=== PATIENT | female | born 1985 | race Caucasian/White ===

== ENCOUNTER → 2016-08-08 | Outpatient (CLI) | payer MEDICAID ==
[2016-08-08 09:31] LABS: BASO % 0.3 % (0.0-1.0); EOS # 0.3 K/mm3 (0.0-0.50); EOS % 3.6 % (0.0-3.0); LARGE UNSTAINED CELL # 0.1 K/mm3 (0.0-0.4); LARGE UNSTAINED CELL % 1.2 % (0.0-4.0); LYMPH # 1.2 K/mm3 (1.5-4.5); LYMPH % 16.7 % (24.0-44.0); MEAN CORPUSCULAR HEMOGLOBIN 28.5 pg (27.0-33.0); MEAN CORPUSCULAR HGB CONC 32.6 g/dl (32.0-36.5); MEAN CORPUSCULAR VOLUME 87.5 fl (80.0-96.0); MONO # 0.4 K/mm3 (0.0-0.8); MONO % 5.3 % (0.0-5.0); NEUTROPHILS # 5.3 K/mm3 (1.8-7.7); PLATELET COUNT, AUTOMATED 308 k/mm3 (150-450); RED CELL DISTRIBUTION WIDTH 12.3 % (11.5-14.5); WHITE BLOOD COUNT 7.2 K/mm3 (4.0-10.0)
[2016-08-08 09:59] LABS: FREE T4 0.97 NG/DL (0.76-1.46)
[2016-08-08 10:23] LABS: PROLACTIN 17.4 NG/ML
--- NOTE | 2016-08-08 10:40 | REP ---
PELVIC ULTRASOUND: Real-time sonographic evaluation of the pelvis is performed utilizing transabdominal technique. The urinary bladder measures 12.0 x 4.9 x 8.4 cm. The uterus measures 8.7 x 3.7 x 5.5 cm. Endometrial stripe measures 14 mm with no endometrial fluid collection. Right ovary measures 4.9 x 2.9 x 2.8 cm. Two dominant follicles are seen, the larger measuring 2.1 cm. The left ovary measures 2.6 x 1.7 x 2.0 cm. There is no other evidence of adnexal mass. No free fluid is seen. There is no evidence of ovarian torsion with blood flow seen in each ovary with duplex Doppler evaluation. The patient cannot tolerate endovaginal ultrasound. IMPRESSION: Essentially negative pelvic ultrasound. Signed by Reynaldo Sheppard MD 08/08/2016 04:57 P
== END ==
LOC: M LAB 08:33
PROVIDERS: ATTEND Nurse Practitioner Women's Health
DX: N92.0 Excessive and frequent menstruation with regular cycle (principal)

== ENCOUNTER 2017-01-31 19:31 | Emergency (ER) | payer MEDICAID ==
[~2017-01-31] VITALS: Ht 160 cm; Wt 95.1 kg
[2017-01-31] MEDS ORDERED: VITA200015 PO (19:39)
[2017-01-31] MEDS ORDERED: NS 1,000 ML IV ONE (21:30)
[2017-01-31] MEDS ORDERED: MORPHINE 2 MG/ML 1ML SYRINGE IV ONE (21:30)
[2017-01-31] MEDS ORDERED: ONDANSETRON 4MG/2ML VIAL (J2405) IV ONE (21:30)
--- NOTE | 2017-01-31 21:42 | REP ---
Clinical: Headache with history of intracranial tumor and surgery. Comparison: None. 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 The ventricles, sulci, and cisterns are otherwise relatively symmetric and grossly normal. Sheppard-white differentiation is is relatively intact. No evidence for acute intracranial hemorrhage or mass effect. No extra-axial hemorrhage or significant fluid collection. Partial opacification and fluid/mucosal thickening involving the sphenoid sinuses noted. Mastoid air cells are clear. Impression: 1. Postoperative changes involving the right cerebral hemisphere as described above. No obvious evidence for acute intracranial process including hemorrhage or mass effect. 2. Partial opacification of the sphenoid sinuses should be correlated clinically and may be related to patient's symptoms (headaches). Signed by Javier Parr MD 01/31/2017 09:34 P
[2017-01-31 21:43] LABS: BASO % 0.3 % (0.0-1.0); EOS # 0.1 K/mm3 (0.0-0.50); EOS % 1.7 % (0.0-3.0); LARGE UNSTAINED CELL # 0.1 K/mm3 (0.0-0.4); LARGE UNSTAINED CELL % 1.2 % (0.0-4.0); LYMPH # 0.6 K/mm3 (1.5-4.5); LYMPH % 11.5 % (24.0-44.0); MEAN CORPUSCULAR HEMOGLOBIN 29.7 pg (27.0-33.0); MEAN CORPUSCULAR HGB CONC 34.5 g/dl (32.0-36.5); MEAN CORPUSCULAR VOLUME 86.2 fl (80.0-96.0); MONO # 0.2 K/mm3 (0.0-0.8); MONO % 4.7 % (0.0-5.0); NEUTROPHILS # 3.7 K/mm3 (1.8-7.7); NEUTROPHILS % 80.6 % (36.0-66.0); PLATELET COUNT, AUTOMATED 188 k/mm3 (150-450); RED CELL DISTRIBUTION WIDTH 12.2 % (11.5-14.5); WHITE BLOOD COUNT 4.6 K/mm3 (4.0-10.0)
[2017-01-31 22:15] LABS: ALBUMIN 3.7 GM/DL (3.2-5.2); ALBUMIN/GLOBULIN RATIO 0.88 (1.00-1.93); ALKALINE PHOSPHATASE 85 U/L (45-117); ALT/SGPT 48 U/L (12-78); ANION GAP 7 MEQ/L (8-16); AST/SGOT 35 U/L (15-37); BILIRUBIN,DIRECT 0.1 MG/DL (0.0-0.2); BILIRUBIN,TOTAL 0.5 MG/DL (0.2-1.0); BLOOD UREA NITROGEN 9 MG/DL (7-18); CALCIUM LEVEL 8.7 MG/DL (8.5-10.1); CARBON DIOXIDE LEVEL 29 MEQ/L (21-32); CHLORIDE LEVEL 100 MEQ/L (98-107); CREATININE FOR GFR 0.88 MG/DL (0.55-1.02); GLOMERULAR FILTRATION RATE > 60.0 (>60); GLUCOSE, FASTING 117 MG/DL (70-105); MAGNESIUM LEVEL 2.2 MG/DL (1.8-2.4); POTASSIUM SERUM 3.9 MEQ/L (3.5-5.1); SODIUM LEVEL 136 MEQ/L (136-145); TOTAL PROTEIN 7.9 GM/DL (6.4-8.2)
[2017-01-31] MEDS ORDERED: LEVO750T13 PO (22:48)
[2017-01-31] MEDS ORDERED: PRED20TA PO (22:49)
[2017-01-31 23:05] VITALS: BP 101/61
[2017-02-11] MEDS ORDERED: CLAR10CA3 PO (18:09)
== END 2017-01-31 23:08 | disposition home or self-care (01) ==
LOC: M ED 19:31
DX: R51 Headache (principal); J01.30 Acute sphenoidal sinusitis, unspecified
CPT/HCPCS: 70450; 80048; 80076; 83735; 84443; 85025; 87880; 96361; 96374; 96375; 99284; J2405

== ENCOUNTER 2017-02-26 11:39 | Day surgery (SDC) | payer MEDICAID ==
[~2017-02-26] VITALS: Ht 162.6 cm; Wt 95.3 kg
[~2017-02-26 11:39] MED LIST: CLAR10CA3 PO; LEVO750T13 PO; PRED20TA PO; VITA200015 PO
[2017-02-26] MEDS ORDERED: LR 1,000 ML IV SCH ×4 (12:15→14:30)
[2017-02-26 12:37] LABS: CONTROL LINE UCG INT CTR LINE PRESENT
[2017-02-26] MEDS ORDERED: LIDOCAINE 2% INJ 100 MG/5 ML SDV (FOR ANES.) As Ordered ONE (13:35)
[2017-02-26] MEDS ORDERED: KETOROLAC 60 MG/2 ML VIAL (J1885) As Ordered ONE (13:35)
[2017-02-26] MEDS ORDERED: PROPOFOL 200 MG/20 ML VIAL As Ordered ONE (13:35)
[2017-02-26] MEDS ORDERED: fentaNYL 100 MCG/2 ML INJECTION (J3010) As Ordered ONE (13:35)
[2017-02-26] MEDS ORDERED: ONDANSETRON 4MG/2ML VIAL (J2405) As Ordered ONE (13:35)
[2017-02-26] MEDS ORDERED: MIDAZOLAM INJ 2 MG/2 ML VIAL (J2250) As Ordered ONE (13:35)
[2017-02-26] MEDS ORDERED: dexameTHASONE 4 MG/ML 1ML VIAL (J1100) As Ordered ONE (13:35)
[2017-02-26] MEDS ORDERED: fentaNYL 100 MCG/2 ML INJECTION (J3010) IV PRN (14:30)
[2017-02-26] MEDS ORDERED: ONDANSETRON 4MG/2ML VIAL (J2405) IV PRN (14:30)
[2017-02-26] MEDS ORDERED: IBUPROFEN 600 MG TAB PO SCH (16:00)
[2017-02-26 16:30] VITALS: BP 135/84
--- NOTE | 2017-02-26 19:16 | RO ---
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 PROCEDURE: Hymenectomy and biopsy left labia. SURGEON: Dr. Sanchez ANESTHESIA: Laryngeal mask anesthesia (LMA). BRIEF DESCRIPTION OF PROCEDURE AND FINDINGS: Marlene was brought to the operating room where sufficient LMA anesthesia was induced and she was prepped, draped and positioned in the usual sterile fashion of course with the microperforate hymen she could not have a vaginal prep at this point in the case. She was then positioned appropriately and after a time etc, the labia were evaluated where the patient had shown me the pyretic area. We did a small full thickness biopsy of the labia and a single stitch was used there to provide hemostasis and proximation of the skin, that was 3-0 Vicryl that we used. We then turned our attention to the hymen. There were pinprick size openings, neither one of them wide enough initially for me to get the end of scissors in. So we went ahead and just dilated it with a little hemostat and then used the Metzenbaum scissors to create some stellate incisions within the hymenal tissue and we resected a little bit of it because it was fairly thick and prominent and then at the base of the stellate incisions we used 3-0 Vicryl to suture the skin and interrupt its stitches for hemostasis and approximation. We then did a vaginal prep and an exam under anesthesia and we found only one cervix and only one uterus and we then packed the vagina with 2-inch packing to put pressure on the area of the dissection of the hymenectomy and the bladder was emptied and the procedure was then ended. ESTIMATED BLOOD LOSS FOR THE PROCEDURE: Maybe 5 mL. FLUID REPLACEMENT: Crystalloid. COMPLICATIONS: None. CONDITION AND DISPOSITION: Marlene tolerated the procedure well and ws recovering in the recovering room in good condition.
== END 2017-02-26 16:43 | disposition home or self-care (01) ==
LOC: M SDC 11:39
PROVIDERS: ATTEND Obstetrics & Gynecology
DX: Q52.3 Imperforate hymen (principal); N90.89 Other specified noninflammatory disorders of vulva and perineum; G40.909 Epilepsy, unspecified, not intractable, without status epilepticus; L40.9 Psoriasis, unspecified; R51 Headache; Z88.2 Allergy status to sulfonamides; Z88.1 Allergy status to other antibiotic agents; Z88.8 Allergy status to other drugs, medicaments and biological substances; Z91.030 Bee allergy status; Z92.3 Personal history of irradiation
CPT/HCPCS: 56700; 84703; 88304; J1100; J1885; J2250; J2405; J3010

== ENCOUNTER → 2017-04-28 | Outpatient (REF) | payer MEDICAID ==
[2017-04-28 13:16] LABS: ANION GAP 7 MEQ/L (8-16); BLOOD UREA NITROGEN 8 MG/DL (7-18); CALCIUM LEVEL 8.8 MG/DL (8.5-10.1); CARBON DIOXIDE LEVEL 28 MEQ/L (21-32); CHLORIDE LEVEL 105 MEQ/L (98-107); CREATININE FOR GFR 0.59 MG/DL (0.55-1.02); GLOMERULAR FILTRATION RATE > 60.0 (>60); GLUCOSE, FASTING 106 MG/DL (70-105); POTASSIUM SERUM 4.2 MEQ/L (3.5-5.1); SODIUM LEVEL 140 MEQ/L (136-145)
== END ==
LOC: M SFHCADAM 09:01
PROVIDERS: ATTEND Physician Assistant Medical
DX: R73.09 Other abnormal glucose (principal); E55.9 Vitamin D deficiency, unspecified

== ENCOUNTER → 2017-05-28 | Outpatient (REF) | payer MEDICAID | LOC: M SFHCADAM 12:13 | DX: J02.9 Acute pharyngitis, unspecified (principal) ==

== ENCOUNTER → 2017-10-01 | Outpatient (REF) | payer MEDICAID ==
[2017-10-01 14:15] LABS: ESTIMATED AVERAGE GLUCOSE 117 MG/DL (60-110); HEMOGLOBIN A1c 5.7 %
== END ==
LOC: M SFHCADAM 08:12
DX: R73.09 Other abnormal glucose (principal)

== ENCOUNTER → 2018-07-28 | Outpatient (REF) | payer MEDICAID ==
[2018-07-28 13:16] LABS: BLOOD UREA NITROGEN 9 MG/DL (7-18); CALCIUM LEVEL 8.7 MG/DL (8.5-10.1); CARBON DIOXIDE LEVEL 31 MEQ/L (21-32); CHLORIDE LEVEL 106 MEQ/L (98-107); CREATININE FOR GFR 0.82 MG/DL (0.55-1.30); GLOMERULAR FILTRATION RATE > 60.0 (>60); GLUCOSE, FASTING 102 MG/DL (70-100); POTASSIUM SERUM 4.3 MEQ/L (3.5-5.1); SODIUM LEVEL 141 MEQ/L (136-145)
[2018-07-28 13:29] LABS: TOTAL 25(OH) VITAMIN D 17.1 NG/ML (30.0-100.0)
[2018-07-28 14:14] LABS: HEMOGLOBIN A1c 5.8 %
== END ==
LOC: M SFHCADAM 08:26
PROVIDERS: ATTEND Physician Assistant
DX: Z68.39 Body mass index [BMI] 39.0-39.9, adult (principal); R73.09 Other abnormal glucose; E55.9 Vitamin D deficiency, unspecified

== ENCOUNTER → 2020-02-07 | Outpatient (REF) | payer MEDICAID ==
[2020-02-07 14:57] LABS: ALBUMIN 3.4 GM/DL (3.2-5.2); ALT/SGPT 27 U/L (12-78); BILIRUBIN,TOTAL 0.3 MG/DL (0.2-1.0); BLOOD UREA NITROGEN 7 MG/DL (7-18); CARBON DIOXIDE LEVEL 29 MEQ/L (21-32); CHLORIDE LEVEL 104 MEQ/L (98-107); CHOLESTEROL LEVEL 214 MG/DL (<200); CREATININE FOR GFR 0.77 MG/DL (0.55-1.30); GLOMERULAR FILTRATION RATE > 60.0 (>60); GLUCOSE, FASTING 102 MG/DL (70-100); HDL CHOLESTEROL 40 MG/DL (>40); LDL CHOLESTEROL 120 MG/DL (<100); NON-HDL-C 174 MG/DL; POTASSIUM SERUM 4.2 MEQ/L (3.5-5.1); SODIUM LEVEL 137 MEQ/L (136-145); TOTAL PROTEIN 7.7 GM/DL (6.4-8.2); TRIGLYCERIDES LEVEL 269 MG/DL (<150)
[2020-02-07 15:03] LABS: TOTAL 25(OH) VITAMIN D 15.5 NG/ML (30.0-100.0)
== END ==
LOC: M SFHCADAM 14:11
PROVIDERS: ATTEND Physician Assistant
DX: R73.01 Impaired fasting glucose (principal); E55.9 Vitamin D deficiency, unspecified; Z68.39 Body mass index [BMI] 39.0-39.9, adult

== ENCOUNTER → 2022-12-15 | Outpatient (REF) | payer MEDICAID ==
[~2022-12-15] MED LIST changes: +LEVO1TAB40 PO; -LEVO750T13 PO
[2022-12-15 12:46] LABS: HEMATOCRIT 40.5 % (36.0-47.0); MEAN CORPUSCULAR HEMOGLOBIN 28.9 pg (27.0-33.0); MEAN CORPUSCULAR HGB CONC 32.1 g/dl (32.0-36.5); PLATELET COUNT, AUTOMATED 319 10^3/uL (150-450); WHITE BLOOD COUNT 6.3 10^3/uL (4.0-10.0)
[2022-12-15 13:15] LABS: ALBUMIN 3.4 G/DL (3.2-5.2); ALKALINE PHOSPHATASE 72 U/L (46-116); ALT/SGPT 17 U/L (7.0-40); AST/SGOT 8 U/L (<34); BILIRUBIN,TOTAL 0.6 MG/DL (0.3-1.2); BLOOD UREA NITROGEN 11 MG/DL (9-23); CALCIUM LEVEL 9.6 MG/DL (8.5-10.1); CARBON DIOXIDE LEVEL 28 MMOL/L (20-31); CHLORIDE LEVEL 105 MMOL/L (98-107); CHOLESTEROL LEVEL 188 MG/DL (<200); CHOLESTEROL RISK RATIO 5.15 (<5); CREATININE FOR GFR 0.82 MG/DL (0.55-1.30); GLOMERULAR FILTRATION RATE > 60.0 (>60); GLUCOSE, FASTING 97 MG/DL (60-100); HDL CHOLESTEROL 36.5 MG/DL (>40); LDL CHOLESTEROL 111.5 MG/DL (<100); NON-HDL-C 151.5 MG/DL; SODIUM LEVEL 139 MMOL/L (136-145); TOTAL PROTEIN 6.8 G/DL (5.7-8.2); TRIGLYCERIDES LEVEL 200 MG/DL (<150)
[2022-12-15 13:34] LABS: HEMOGLOBIN A1c 5.7 % (4.0-6.0)
== END ==
LOC: M SFHCADAM 07:18
PROVIDERS: ATTEND Physician Assistant
DX: R73.09 Other abnormal glucose (principal); E55.9 Vitamin D deficiency, unspecified; Z68.39 Body mass index [BMI] 39.0-39.9, adult; E78.00 Pure hypercholesterolemia, unspecified

== ENCOUNTER → 2023-01-20 | Outpatient (REF) | payer MEDICAID | LOC: M SFHCADAM 15:52 | PROVIDERS: ATTEND Physician Assistant Medical | DX: Z53.9 Procedure and treatment not carried out, unspecified reason (principal) ==

== ENCOUNTER → 2023-01-22 | Outpatient (REF) | payer MEDICAID | LOC: M SFHCADAM 07:58 | PROVIDERS: ATTEND Physician Assistant Medical | DX: M79.644 Pain in right finger(s) (principal) ==

== ENCOUNTER → 2023-01-22 | Outpatient (CLI) | payer MEDICAID | LOC: M ADAMS 08:38 | PROVIDERS: ATTEND Physician Assistant Medical | DX: M79.644 Pain in right finger(s) (principal) ==

== ENCOUNTER → 2023-04-15 | Outpatient (CLI) | payer MEDICAID | LOC: M WHC 13:08 | PROVIDERS: ATTEND Nurse Practitioner Family | DX: N91.2 Amenorrhea, unspecified (principal); N83.291 Other ovarian cyst, right side ==

== ENCOUNTER → 2023-04-15 | Outpatient (CLI) | payer MEDICAID ==
[2023-04-15 17:01] LABS: HEMOGLOBIN A1c 5.7 % (4.0-6.0)
[2023-04-15 17:13] LABS: PROLACTIN 4.91 NG/ML; THYROID STIMULATING HORMONE 1.337 uIU/ML (0.55-4.78)
[2023-04-15 17:17] LABS: FREE T4 0.85 NG/DL (0.89-1.76)
[2023-04-15 17:19] LABS: ALBUMIN 3.5 G/DL (3.2-5.2); ALKALINE PHOSPHATASE 81 U/L (46-116); ALT/SGPT 22 U/L (7.0-40); AST/SGOT 16 U/L (<34); BILIRUBIN,TOTAL 0.2 MG/DL (0.3-1.2); BLOOD UREA NITROGEN 12 MG/DL (9-23); CALCIUM LEVEL 8.9 MG/DL (8.5-10.1); CARBON DIOXIDE LEVEL 28 MMOL/L (20-31); CHLORIDE LEVEL 104 MMOL/L (98-107); CREATININE FOR GFR 0.76 MG/DL (0.55-1.30); GLOMERULAR FILTRATION RATE > 60.0 (>60); GLUCOSE, FASTING 108 MG/DL (60-100); POTASSIUM SERUM 4.4 MMOL/L (3.5-5.1); SODIUM LEVEL 140 MMOL/L (136-145); TOTAL PROTEIN 7.1 G/DL (5.7-8.2)
[2023-04-15 17:20] LABS: HCG, SERUM QUALITATIVE NEGATIVE (NEGATIVE)
[2023-04-19 17:07] LABS: 17 HYDROXY PROGESTERONE < 10 ng/dL (.)
== END ==
LOC: M PLALAB 13:48
PROVIDERS: ATTEND Nurse Practitioner Family
DX: N91.2 Amenorrhea, unspecified (principal)

== ENCOUNTER 2023-08-19 09:04 | Day surgery (SDC) | payer MEDICAID ==
[~2023-08-19] VITALS: Ht 160 cm; Wt 100.5 kg
[~2023-08-19 09:04] MED LIST changes: +CALCCAP4 PO; +LR 1,000 ML IV SCH; +VITA100093 PO
[2023-08-19] MEDS ORDERED: LR 1,000 ML IV SCH ×2 (09:35→11:40)
[2023-08-19 09:36] LABS: HEMATOCRIT 42.7 % (36.0-47.0); HEMOGLOBIN 13.9 g/dl (12.0-15.5); MEAN CORPUSCULAR HEMOGLOBIN 28.7 pg (27.0-33.0); MEAN CORPUSCULAR HGB CONC 32.6 g/dl (32.0-36.5); MEAN CORPUSCULAR VOLUME 88.2 fl (80.0-96.0); PLATELET COUNT, AUTOMATED 322 10^3/uL (150-450); RED BLOOD COUNT 4.84 10^6/uL (4.00-5.40); WHITE BLOOD COUNT 6.8 10^3/uL (4.0-10.0)
[2023-08-19] MEDS ORDERED: CLOB0.0515 (09:36)
[2023-08-19] MEDS ORDERED: [UNRECOGNIZED DRUG - CODE] (09:36)
[2023-08-19] MEDS ORDERED: KETO2SHA8 TOP (09:36)
[2023-08-19] MEDS ORDERED: TACR0.1O (09:36)
[2023-08-19] MEDS ORDERED: LEVOTAB10 PO (09:36)
[2023-08-19] MEDS: SILVER NITRATE APPLICATOR (1 = QTY 10) As Ordered ONE (10:38)
[2023-08-19] MEDS ORDERED: dexmedeTOMIDine (4MCG/ML)200MCG/50ML BTL (PRECEDEX) As Ordered ONE (10:59)
[2023-08-19] MEDS ORDERED: LIDOCAINE 2% 100MG/5ML SDV (FOR ANES.) As Ordered ONE (10:59)
[2023-08-19] MEDS ORDERED: ONDANSETRON 4MG 2ML VIAL As Ordered ONE (10:59)
[2023-08-19] MEDS ORDERED: fentaNYL 100 MCG/2 ML INJECTION As Ordered ONE (10:59)
[2023-08-19] MEDS ORDERED: KETOROLAC 60MG 2ML VIAL As Ordered ONE (10:59)
[2023-08-19] MEDS ORDERED: propofoL 200 MG/20 ML VIAL As Ordered ONE (10:59)
[2023-08-19] MEDS ORDERED: MIDAZOLAM INJ 2MG/2ML VIAL As Ordered ONE (10:59)
[2023-08-19] MEDS ORDERED: ACETAMINOPHEN 1000MG 100ML IV BAG As Ordered ONE (11:05)
[2023-08-19] MEDS: LIDOCAINE W/EPINEPHRINE 1% 20ML VIAL As Ordered ONE (11:30)
[2023-08-19] MEDS ORDERED: HYDROMORPHONE HCL 0.5 MG/ 0.5 ML SYRINGE IV PRN (11:40)
[2023-08-19] MEDS ORDERED: oxyCODONE 5MG TAB PO PRN ×2 (11:40→12:15)
[2023-08-19] MEDS ORDERED: fentaNYL 100 MCG/2 ML INJECTION IV PRN (11:40)
[2023-08-19] MEDS ORDERED: ONDANSETRON 4MG 2ML VIAL IV PRN (12:15)
[2023-08-19] MEDS ORDERED: ACETAMINOPHEN 500 MG TAB PO PRN (12:15)
[2023-08-19] MEDS: ONDANSETRON 4MG 2ML VIAL IV PRN (12:18)
[2023-08-19 12:40] VITALS: BP 121/71; TEMP 96.7; O2SAT 95
== END 2023-08-19 13:07 | disposition home or self-care (01) ==
LOC: M SDC 09:04
PROVIDERS: ATTEND Obstetrics & Gynecology
DX: N84.0 Polyp of corpus uteri (principal); N93.9 Abnormal uterine and vaginal bleeding, unspecified; N85.02 Endometrial intraepithelial neoplasia [EIN]; H54.7 Unspecified visual loss; R73.03 Prediabetes; Z79.899 Other long term (current) drug therapy; Z85.841 Personal history of malignant neoplasm of brain; Z92.3 Personal history of irradiation; Z88.2 Allergy status to sulfonamides; Z88.8 Allergy status to other drugs, medicaments and biological substances; Z91.030 Bee allergy status
CPT/HCPCS: 58558; 81025; 85027; 86850; 86900; 86901; 88305; J0131; J1100; J1885; J2250; J2405; J3010

== ENCOUNTER → 2023-11-05 | Outpatient (REF) | payer MEDICAID ==
[~2023-11-05] MED LIST changes: +CLOB0.0515; +KETO2SHA8 TOP; +LEVOTAB10 PO; -LR 1,000 ML IV SCH; +TACR0.1O; +[UNRECOGNIZED DRUG - CODE]
[2023-11-05 15:09] LABS: HEMOGLOBIN 14.2 g/dl (12.0-15.5); MEAN CORPUSCULAR HEMOGLOBIN 28.8 pg (27.0-33.0); MEAN CORPUSCULAR HGB CONC 32.3 g/dl (32.0-36.5); MEAN CORPUSCULAR VOLUME 89.2 fl (80.0-96.0); PLATELET COUNT, AUTOMATED 325 10^3/uL (150-450); RED BLOOD COUNT 4.93 10^6/uL (4.00-5.40); WHITE BLOOD COUNT 8.2 10^3/uL (4.0-10.0)
[2023-11-05 15:25] LABS: HEMOGLOBIN A1c 5.8 % (4.0-6.0)
[2023-11-05 15:38] LABS: ALBUMIN 3.6 G/DL (3.2-5.2); ALKALINE PHOSPHATASE 82 U/L (46-116); ALT/SGPT 21 U/L (7.0-40); AST/SGOT 9 U/L (<34); BILIRUBIN,TOTAL 0.5 MG/DL (0.3-1.2); BLOOD UREA NITROGEN 12 MG/DL (9-23); CALCIUM LEVEL 9.4 MG/DL (8.5-10.1); CARBON DIOXIDE LEVEL 31 MMOL/L (20-31); CHLORIDE LEVEL 104 MMOL/L (98-107); CREATININE FOR GFR 0.86 MG/DL (0.55-1.30); GLOMERULAR FILTRATION RATE > 60.0 (>60); GLUCOSE, FASTING 89 MG/DL (60-100); POTASSIUM SERUM 4.3 MMOL/L (3.5-5.1); SODIUM LEVEL 139 MMOL/L (136-145); TOTAL PROTEIN 7.3 G/DL (5.7-8.2)
== END ==
LOC: M SFHCADAM 10:40
PROVIDERS: ATTEND Physician Assistant
DX: Z01.818 Encounter for other preprocedural examination (principal); R73.09 Other abnormal glucose; E66.9 Obesity, unspecified; Z68.38 Body mass index [BMI] 38.0-38.9, adult

== ENCOUNTER 2023-11-25 06:11 | Day surgery (SDC) | payer MEDICAID ==
[~2023-11-25] VITALS: Ht 160 cm; Wt 101.7 kg
[~2023-11-25 06:11] MED LIST changes: -CLOB0.0515; +CLOB0.0515 TOP; -[UNRECOGNIZED DRUG - CODE]; +[UNRECOGNIZED DRUG - CODE] TOP
[2023-11-25 06:59] LABS: HEMATOCRIT 40.8 % (36.0-47.0); HEMOGLOBIN 13.3 g/dl (12.0-15.5); MEAN CORPUSCULAR HEMOGLOBIN 28.9 pg (27.0-33.0); MEAN CORPUSCULAR HGB CONC 32.6 g/dl (32.0-36.5); MEAN CORPUSCULAR VOLUME 88.5 fl (80.0-96.0); PLATELET COUNT, AUTOMATED 287 10^3/uL (150-450); RED BLOOD COUNT 4.61 10^6/uL (4.00-5.40); WHITE BLOOD COUNT 10.1 10^3/uL (4.0-10.0)
[2023-11-25] MEDS: LR 1,000 ML IV SCH (07:04)
[2023-11-25] MEDS ORDERED: MIDAZOLAM INJ 2MG/2ML VIAL As Ordered ONE (07:08)
[2023-11-25] MEDS ORDERED: fentaNYL 100 MCG/2 ML INJECTION As Ordered ONE (07:08)
[2023-11-25] MEDS ORDERED: KETOROLAC 60MG 2ML VIAL As Ordered ONE (07:09)
[2023-11-25] MEDS ORDERED: ONDANSETRON 4MG 2ML VIAL As Ordered ONE (07:09)
[2023-11-25] MEDS ORDERED: SUGAMMADEX SODIUM 500 MG/5 ML VIAL (BRIDION) As Ordered ONE (07:09)
[2023-11-25] MEDS ORDERED: ROCURONIUM BROMIDE 50MG/5ML VIAL As Ordered ONE (07:09)
[2023-11-25] MEDS ORDERED: LIDOCAINE 2% 100MG/5ML SDV (FOR ANES.) As Ordered ONE (07:09)
[2023-11-25] MEDS ORDERED: propofoL 200 MG/20 ML VIAL As Ordered ONE (07:09)
[2023-11-25] MEDS ORDERED: KETAMINE HCL 200MG/20ML VIAL As Ordered ONE (07:10)
[2023-11-25] MEDS ORDERED: ACETAMINOPHEN 1000MG 100ML IV BAG As Ordered ONE (07:10)
[2023-11-25] MEDS: ceFAZolin SOD 2 GM in IV 1 EA IV ONE (07:35)
[2023-11-25] MEDS ORDERED: HYDROmorphone HCL 2MG/ML 1ML VIAL As Ordered ONE (09:13)
[2023-11-25] MEDS ORDERED: fentaNYL 100 MCG/2 ML INJECTION IV PRN (09:20)
[2023-11-25] MEDS ORDERED: ONDANSETRON 4MG 2ML VIAL IV PRN (09:20)
[2023-11-25] MEDS ORDERED: PERCOCET 5MG/325MG TAB PO PRN (10:00)
[2023-11-25] MEDS ORDERED: KETOROLAC 30 MG/ML 1ML VIAL IV SCH (10:00)
[2023-11-25] MEDS: oxyCODONE 5MG TAB PO PRN (10:15)
[2023-11-25 11:14] VITALS: BP 128/78; TEMP 98.2; O2SAT 98
== END 2023-11-25 11:20 | disposition home or self-care (01) ==
LOC: M SDC 06:11
PROVIDERS: ATTEND Obstetrics & Gynecology
DX: N85.02 Endometrial intraepithelial neoplasia [EIN] (principal); N80.03 Adenomyosis of the uterus; N83.8 Other noninflammatory disorders of ovary, fallopian tube and broad ligament; Z85.841 Personal history of malignant neoplasm of brain; R73.03 Prediabetes; Z79.899 Other long term (current) drug therapy; Z88.8 Allergy status to other drugs, medicaments and biological substances; Z88.2 Allergy status to sulfonamides; Z92.3 Personal history of irradiation

== ENCOUNTER → 2024-02-15 | Outpatient (CLI) | payer MEDICAID | LOC: M ADAMS 13:32 | PROVIDERS: ATTEND Physician Assistant | DX: M65.4 Radial styloid tenosynovitis [de Quervain] (principal); M79.641 Pain in right hand ==

== ENCOUNTER → 2024-03-22 | Outpatient (REF) | payer MEDICAID ==
[2024-03-24 16:22] LABS: HPV APTIMA Not Detected (Not Detected)
== END ==
LOC: M SFHCWAGY 18:00
PROVIDERS: ATTEND Nurse Practitioner Family
DX: Z12.72 Encounter for screening for malignant neoplasm of vagina (principal); Z11.51 Encounter for screening for human papillomavirus (HPV)

== ENCOUNTER → 2025-01-31 | Outpatient (REF) | payer MEDICAID ==
[~2025-01-31] MED LIST changes: +KETO120S5 TOP; -KETO2SHA8 TOP
[2025-01-31 17:46] LABS: ALT/SGPT 18.0 U/L (7.0-40); AST/SGOT 15.0 U/L (<34); CALCIUM LEVEL 10.0 MG/DL (8.5-10.1); CARBON DIOXIDE LEVEL 29.0 MMOL/L (20-31); CHLORIDE LEVEL 104.0 MMOL/L (98-107); CREATININE FOR GFR 0.94 MG/DL (0.55-1.30); GLOMERULAR FILTRATION RATE 79.2 (>60); POTASSIUM SERUM 4.2 MMOL/L (3.5-5.1); SODIUM LEVEL 142.0 MMOL/L (136-145)
[2025-01-31 17:47] LABS: FREE T4 1.13 NG/DL (0.89-1.76)
[2025-01-31 18:28] LABS: ESTIMATED AVERAGE GLUCOSE 128.0 MG/DL (60-110)
== END ==
LOC: M SFHCADAM 11:19
PROVIDERS: ATTEND Physician Assistant Medical
DX: E66.09 Other obesity due to excess calories (principal); Z68.37 Body mass index [BMI] 37.0-37.9, adult; E66.812 Obesity, class 2; R79.89 Other specified abnormal findings of blood chemistry; R73.03 Prediabetes

== ENCOUNTER 2025-03-24 07:48 | Day surgery (SDC) | payer MEDICAID ==
[~2025-03-24] VITALS: Ht 160 cm; Wt 93.9 kg
[~2025-03-24 07:48] MED LIST changes: +PANT20TA6 PO
[2025-03-24 09:20] VITALS: BP 110/67; TEMP 96.2; O2SAT 98
[2025-03-24] MEDS ORDERED: LIDOCAINE 2% 100 MG/5 ML SDV (FOR ANES.) As Ordered ONE (09:20)
== END 2025-03-24 10:00 | disposition home or self-care (01) ==
LOC: M OPP 07:48
PROVIDERS: ATTEND Surgery
DX: R13.10 Dysphagia, unspecified (principal)
CPT/HCPCS: 43239; 88305; J3010